=== PATIENT | female | born 1985 | race Caucasian/White ===

== ENCOUNTER 2017-09-19 09:46 | Inpatient (IN) ==
[2017-09-20] MEDS ORDERED: CALCIUM CARBONATE Chewable 500mg TABLET PO PRN ×2 (05:06→12:52)
[2017-09-20] MEDS ORDERED: OXYTOCIN DRIP 30 UNIT/500 ML ML IV PRN (05:06)
[2017-09-20] MEDS ORDERED: MAG-AL + SIM ORAL LIQUID 30ml PO PRN ×2 (05:06→12:52)
[2017-09-20] MEDS ORDERED: D5LR 1,000 ML IV PRN (05:06)
[2017-09-20] MEDS ORDERED: METHYLERGONOVINE 0.2 MG/ML INJECTION IM PRN (05:06)
[2017-09-20] MEDS ORDERED: LIDOCAINE 1% (10mg/ml) 2mL INJ PF SDV ID PRN (05:06)
[2017-09-20] MEDS ORDERED: ACETAMINOPHEN 500 MG TABLET PO PRN ×2 (05:06→12:52)
[2017-09-20] MEDS ORDERED: CARBOPROST 250 MCG/ML INJECTION IM PRN (05:06)
--- OUTSIDE RECORDS SUMMARY | 2017-09-20 05:08 | External Medical Summary | Continuity of Care Document ---
:1985 Author Organization [facility] Address [address] [place], [place] [address] Phone Care Team Providers Name Role Phone Teresa Mckeon MD Unavailable Unavailable Allergies, Adverse Reactions, Alerts Substance Reaction Severity Status No Known Drug Allergies Unknown Active Medications Medication Instructions Dosage Effective Dates Status Comments (start - stop) PrenaCare 90 mg-1 take 1 tablet by Not Available - Active mg-50 mg Tab oral route every day Problems Condition Effective Dates (start - stop) Clinical Status Maternal care for excess growth, - third trimester, unsp 36 weeks gestation of - Maternal care for excess growth, - third trimester, unsp Encounter for suprvsn of normal - , third trimester 34 weeks gestation of - Encounter for suprvsn of normal - , first trimester 13 weeks gestation of - Encounter for suprvsn of normal - , first trimester 9 weeks gestation of - Encounter for suprvsn of normal - , second trimester 18 weeks gestation of - Encounter for suprvsn of normal - , second trimester 21 weeks gestation of - Encounter for suprvsn of normal - , second trimester 25 weeks gestation of - Encounter for suprvsn of normal - , third trimester Encounter For Screening For - Streptococcus B 36 weeks gestation of - Encounter for suprvsn of normal - , third trimester 38 weeks gestation of - Encounter for suprvsn of normal - , third trimester 29 weeks gestation of - Encounter for suprvsn of normal - , third trimester 37 weeks gestation of - Encounter for suprvsn of normal - , third trimester 32 weeks gestation of - Encounter for screening of - mother 21 weeks gestation of - Active Procedures Procedure Date Ultrasnd preg uterus, flwup/repeat Results Test Name Date and Time Measure Units Reference Range Abnormal Flag Comments Unknown Advance Directives Directive Yes / No Effective Date File Name Unknown Encounters Encounter Practice Location Reason(s) Diagnoses Date Provider Care Team Description For Visit Members Chago Batista Encounter for Sep- [place] Referring In Womens suprvsn of normal 3-201 Javed. 700 Provider: Fred HERNNADEZ, , third 8 Medical Teresa [address] [email or web address] weeks Center Fast, 110 1522, gestation of Kj Leyva, [address], [address], [place], [address], [id number], [place], [facility] [id number] [place], [address]. tel:+[phone] , [place]. tel:[phone] tel: [phone] Chago [place] Encounter for Dec-2 [place] Referring In Womens suprvsn of normal 8-201 Javed. 700 Provider: Fred HERNANDEZ, , third 7 Medical Teresa PO Box [email or web address] weeks Center Fast, 110 1522, gestation of Kj Leyva, [address], [address], [place], [address], [id number], [place], [facility] [id number] [place], [address]. tel:+[phone] , [place]. tel:[phone] tel: [phone] Chago [place] Encounter for Dec-2 [place] Referring In Womens suprvsn of normal 0-201 Javed. 700 Provider: Fred HERNANDEZ, , third 7 Medical Teresa PO Box trimesterEncounte Center Fast, 110 1522, r For Kj Leyva, Screening For 120, [address] PO [place], Streptococcus B36 [place], [address], [id number], weeks gestation [place], [place], [place] [id number] [place], [address]. tel: , [place]. tel: tel:[phone] Chago [place] Maternal care for Dec-2 [place] Referring In Womens Ultrasound excess 0-201 Javed. 700 Provider: Health MARY, growth, third 7 Medical Teresa PO Box trimester, [email or web address] Center Fast, 110 1522, weeks gestation Kj Leyva, of [address], [address], [place], [address], [id number], [place], [place], [id number] [place], [address]. tel: , [place]. tel: tel:[phone] Chago [place] Maternal care for Dec-0 [place] Referring In Womens excess 5-201 Javed. 700 Provider: Fred HERNANDEZ, growth, third 7 Medical Teresa PO Box trimester, Center Fast, 110 1522, unspEncounter for Kj Leyva, suprvsn of normal 120, [address] PO [place], , third [place], [address], [id number], [email or web address] weeks [facility], [place] [id number] [place], [address]. tel: , [place]. tel: tel:[phone] Chago [place] Encounter for Nov-2 [place] Referring In Womens suprvsn of normal 1-201 Javed. 700 Provider: Fred HERNANDEZ, , third 7 Medical Teresa PO Box [email or web address] weeks Center Fast, 110 1522, gestation of Kj Leyva, [address], [address], [place], [address], [id number], [place], [place], [id number] [place], [address]. tel: , [place]. tel: tel:[phone] Chago [place] Encounter for Oct-3 [place] Referring In Womens suprvsn of normal 1-201 Javed. 700 Provider: Fred HERNANDEZ, , third 7 Medical Teresa PO Box [email or web address] weeks Center Fast, 110 1522, gestation of Kj Leyva, [address], [address], [place], [address], [id number], [place], [place], [id number] [place], [address]. tel: , [place]. tel: tel:[phone] [place] Encounter for Oct-0 [place] Referring In Womens suprvsn of normal 3-201 Javed. 700 Provider: Health MARY, , second 7 Medical Teresa PO Box [email or web address] weeks Center Fast, 110 1522, gestation of Kj Leyva, [address], [address], [place], [address], [id number], [place], [place], [id number] [place], [address]. tel: , [place]. tel: tel:[phone] [place] Encounter for Sep-0 [place] Referring In Womens suprvsn of normal 7-201 Javed. 700 Provider: Fred HERNANDEZ, , second 7 Medical Teresa PO Box [email or web address] weeks Center Fast, 110 1522, gestation of Kj Leyva, [address], [address], [place], [address], [id number], [place], [place], [id number] [place], [address]. tel: , [place]. tel: tel:[phone] [place] Encounter for Sep-0 [place] Referring In Womens Ultrasound 7-201 Javed. 700 Provider: Fred HERNANDEZ, screening of 7 Medical Teresa PO Box weeks Center Fast, 110 1522, gestation of Kj Leyva, 120, [address], [place], [address], [id number], [place], [place], [id number] [place], [address]. tel:+ , [place]. tel: tel: [phone] [place] Encounter for Aug-1 [place] Referring In Womens suprvsn of normal 5-201 Javed. 700 Provider: Fred HERNANDEZ, , second 7 Medical Teresa PO Box [email or web address] weeks Center Fast, 110 1522, gestation of Kj Leyva, 120, [address] [place], [address], [id number], [place], [place], [id number] [place], [address]. tel: , [place]. tel: tel: [phone] Chago [place] Encounter for Giorgi-1 [place] Referring In Womens suprvsn of normal 3-201 [place]. 700 Provider: Health MARY, , first 7 Medical Teresa PO Box [email or web address] weeks Center Fast, 110 1522, gestation of Kj Leyva, 120, [address] [place], [address], [id number], [place], [place], [id number] [place], [address]. tel: , [place]. tel: tel: [phone] Chago [place] Encounter for Adriel-1 [place] Referring In Womens suprvsn of normal 5-201 [place]. 700 Provider: Health MARY, , first 7 Medical Teresa Box trimester9 weeks Center Fast, 110 1522, gestation of Kj Leyva, 120, [address] [place], [address], [id number], [place], [place], [id number] [place], [address]. tel: , [place]. tel: tel: [phone] Chago [place] Giorgi-1 [place] Referring In Womens 0-201 [place]. 700 Provider: Health MARY, 5 [facility] [place] R, 1522, Kj Leyva, 120, Medical [place] [facility] , [place], [place] [address], [place] [id number] [place], tel: , [place]. [place], tel: [phone]. [id number] tel:[phone] Chago [place]ista Feb-1 [place] In Womens 0-201 Javed. 700 Health MARY, 5 [facility] Box Center 1522, Kj Leyva, 120, [place] [id number], [place], [place] [id number] tel: , [place]. tel: [phone] Chago [place]ista Mar-0 [place] In Womens 5-201 Javed. 700 [facility], 2 Medical PO Box Center 1522, , Kj Aburto, 120, [place], [place], [id number], [place], [place] [id number] tel: , [place]. tel: [phone] Chago Batista Aug- Fanny In Womens 3-200 Gisell. [facility], 9 700 PO Box [facility] [address], [address], [place]j [place], 120, [id number], [place], [place], tel: [phone] , [place]. tel: [phone] Family History Family Member Diagnosis Age At Onset Father Hypercholesterolemia Paternal Grandfather Hypercholesterolemia Brother Cardiovascular Disease Paternal Grandfather Cardiovascular Disease Immunizations Vaccine Date Status Comments Tdap completed Source: New Immunization Record Influenza, injectable, completed Source: New Immunization Record quadrivalent, preservative free, 3 yrs or older Tdap completed Source: New Immunization Record Influenza, injectable, completed Source: Other Provider quadrivalent, preservative free, 3 yrs or older Payers Payer name Insurance type Covered green party ID Authorization(s) BCBS Out Of [place] [id number] BCBS Out Of [place] [id number] BCBS Out Of [place] [id number] [employer] [id number] Social History Type Description Quantity Date Captured Unknown Vital Signs Date / Height Weight BMI Pulse Blood Temperature Respiratory Body Head BMI Time: Rate Pressure Rate Surface Circumference percentile Area Unknown Chief Complaint And Reason For Visit Unknown Chief Complaint And Reason For Visit Reason For Referral Reason For Referral Unknown Plan Of Care Date Type Action Status Appointment Pallavi Swain BOOKED Future Order: Radiology Order Ultrasound OB Follow-up ([id number]) Ordered Future Order: Radiology Order Complete OB Ultrasound > 14 Ordered Weeks ([id number]) Date Type Problem Goal Intervention Status Start Date Unknown. History Of Present Illness Encounter Date Complaint History Of Present Illness This patient has no known history of present illness Functional Status Encounter Date Functional Assessment Cognitive Assessment Unknown Medications Administered Medication Instructions Dosage Effective Dates (start - stop) Status Comments Drug Treatment Unknown Instructions Date Instruction Additional Information HIV and other routine tests risk factors identified by history anticipated course of care nutrition and weight gain counseling, special diet toxoplasmosis precautions (cats / raw meat) sexual activity exercise indications for ultrasound influenza vaccine environmental / work hazards travel use of any medications (including supplements, vitamins, herbs, OTC drugs) domestic violence seat belt use childbirth classes / hospital facilities hospital registration genetic testing risks Zika virus assessment & precautions
--- OUTSIDE RECORDS SUMMARY | 2017-09-20 05:08 | External Medical Summary | Continuity of Care Document ---
:1984 Author Organization [facility] Address [address] [place], [place] [id number] Phone Care Team Providers Name Role Phone [...] Effective Dates (start - stop) Clinical Status Encounter for suprvsn of normal - , second trimester 18 weeks gestation of - Encounter for suprvsn of normal - , first trimester 13 weeks gestation of - Encounter for suprvsn of normal - , first trimester 9 weeks gestation of - Active Procedures Procedure Date OB Visit No Charge Results Test Name Date and Time Measure Units Reference Range Abnormal Flag Comments Unknown Advance Directives Directive Yes / No Effective Date File Name Unknown Encounters Encounter Practice Location Reason(s) Diagnoses Date Provider Care Team Description For Visit Members [facility] [place] Encounter [place] Referring [facility] for suprvsn -2016 Javed. 700 Provider: MARY, DORITA Box of normal Medical Teresa Mckeon, 1522, , [address], [address] [place], [place], second Kj 120, [address] PO [id number], [place] [email or web address] [place], [address], tel:[phone] weeks Charlie LORENZO, 6790 gestation [id number], [place], [address]. of [place]. tel: tel:[phone] [facility] [place] Encounter [facility] for Javed. 700 Provider: DORITA HERNANDEZ of [facility], 1522, , Center , [address] [place], first Kj [address], [address] PO [id number], [place] [email or web address] Priscilla [place] 596, tel:+ weeks Charlie LORENZO, 6790 gestation [id number], [place], [address]. of [place]. tel: tel: [phone] [facility] [place] Encounter [facility] for Javed. 700 Provider: DORITA HERNANDEZ of [facility] Teresa [facility], 1522, , Center , [address] [place], first Kj 120, [address] PO , [place] trimester9 Priscilla [place] 596, tel:+ weeks Charlie LORENZO, 6790 gestation [id number], [place], [address]. of [place]. tel: tel: [phone] [facility] [place] [facility] -2014 Javed. 700 Provider: DORITA HERNANDEZ [facility] 1522, [place] Leyva [place], [place], Kj 120, 700 Medical [id number], [place] [address] tel: [place], Kj 120, 6790 [id number], [place], [place]. [id number]. tel: tel: [phone] [facility] [place]2014 Javed. 700 DORITA HERNANDEZ [facility] 1522, [place] Lamonte Leyva [place], Kj 120, [id number], [place], tel:[phone] [place], 6790 [id number], [place]. tel:[phone] [facility] [place] [facility] -2011 Javed. 700 DORITA HERNANDEZ [facility] 1522, [place] Lamonte Leyva [place], Kj 120, [id number], [place], tel:[phone] MAURA, 6790 [id number], [place]. tel:[phone] [facility] [place] [facility] -2008 Brenda. HERNANDEZ, [address] 3461, Medical [place], [place], Center , [id number], [place] Kj 120, tel:[phone] [place] [address] LORENZO, [id number], [place]. tel:[phone] Family History Family Member Diagnosis Age At Onset Father Hypercholesterolemia Paternal Grandfather Hypercholesterolemia Brother Cardiovascular Disease Paternal Grandfather Cardiovascular Disease Immunizations Vaccine Date Status Comments Tdap completed Source: New Immunization Record Influenza, injectable, completed Source: Other Provider quadrivalent, preservative free, 3 yrs or older Payers Payer name Insurance type Covered democrat ID Authorization(s) BCBS Out Of State [id number] [facility] [id number] Social History Type Description Quantity Date Captured Alcohol Use Details No Caffeine Use Details Unknown Tobacco Use Status Unknown Smoking Status Never smoker Vital Signs Date / Height Weight BMI Pulse Blood Temperature Respiratory Body Head BMI Time: Rate Pressure Rate Surface Circumference percentile Area 163.00 39.3 138/78 -2017 lbs 0 mm[Hg] 11:39 kg/m AM eter (2) 163.00 39.3 -2017 lbs 0 11:31 kg/m AM eter (2) Chief Complaint And Reason For Visit Unknown Chief Complaint And Reason For Visit Reason For Referral Reason For Referral Unknown Plan Of Care Date Type Action Status Appointment Pallavi Swain BOOKED Appointment Pallavi Swain BOOKED Date Type Problem Goal Intervention Status Start [...]
--- OUTSIDE RECORDS SUMMARY | 2017-09-20 05:08 | External Medical Summary | Continuity of Care Document ---
:1984 Author Organization [facility] Address [address] [place], [place] [address] Phone Care Team Providers Name Role Phone [...] gestation of - Active Procedures Procedure Date Unknown Results Test Name Date and Time Measure Units Reference Range Abnormal Flag Comments Unknown Advance Directives Directive Yes / No Effective Date File Name Unknown Encounters Encounter Practice Location Reason(s) Diagnoses Date Provider Care Team Description For Visit Members Chago Batista Encounter for Sep- [place] Referring In Womens suprvsn of normal 3-201 Javed. 700 Provider: Fred HERNANDEZ, , third 8 Medical Teresa PO Box [email or web address] weeks Center Fast, 110 1522, gestation of Kj Leyva, 120, [address] PO [place], [place], [address], [id number], [place], [facility] [id number] [place], [address]. tel:[phone] , [place]. tel:[phone] tel: [phone] Chago [place] Encounter for Dec-2 [place] Referring In Womens suprvsn of normal 8-201 Javed. 700 Provider: Fred HERNANDEZ, , third 7 Medical Teresa Box [email or web address] weeks Center Fast, 110 1522, gestation of Kj Leyva, 120, [address] PO [place], [place], [address], [id number], [place], [facility] [id number] [place], [address]. tel:[phone] , [place]. tel:[phone] tel: [phone] Chago [place] Encounter for Dec-2 [place] Referring In Womens suprvsn of normal 0-201 Javed. 700 Provider: Fred HERNANDEZ, , third 7 Medical Teresa Box trimesterEncounte Center Fast, 110 1522, r For Kj Leyva, Screening For 120, [address] PO [place], Streptococcus B36 [place], [address], [id number], weeks gestation [place], [place], [place] [id number] [place], [address]. tel: , [place]. tel: tel:[phone] [facility] [place] Maternal care for Dec-2 [place] Referring In Womens Ultrasound excess 0-201 Javed. 700 Provider: Fred HERNANDEZ, growth, third 7 Medical Teresa PO Box trimester, [email or web address] Center Fast, 110 1522, weeks gestation Kj Leyva, of 120, [address]A, [place], [address], [id number], [place], [place], [id number] [place], [address]. tel: , [place]. tel: tel:[phone] [facility] [place] Dec-1 [place] In Womens 9-201 Javed. 700 Health MARY, 7 Medical PO Box Center 1522, [place]j Leyva, 120, [place], [place], [id number], [place], [place] [id number] tel: , [place]. tel: [phone] Chago [place] Maternal care for Dec-0 [place] Referring In Womens excess 5-201 Javed. 700 Provider: Fred HERNANDEZ, growth, third 7 Medical Teresa PO Box trimester, Center Fast, 110 1522, unspEncounter for Kj Leyva, suprvsn of normal 120, Street PO [place], , third [place], [address], [id number], [email or web address] weeks [facility], [place] [id number] [place], [address]. tel: , [place]. tel: tel:[phone] Chago [place]ista Encounter for Nov-2 [place] Referring In Womens suprvsn of normal 1-201 Javed. 700 Provider: Fred HERNANDEZ, , third 7 Medical Teresa PO Box [email or web address] weeks Center Fast, 110 1522, gestation of Kj Leyva, 120, [address] PO [address]URA, [place], [address], [id number], [place], [place], [id number] [place], [address]. tel: , [place]. tel: tel:[phone] Chago [place] Encounter for Oct-3 [place] Referring In Womens suprvsn of normal 1-201 [place]. 700 Provider: Fred HERNANDEZ, , third 7 Medical Tereas KEVIN Box [email or web address] weeks Center Fast, 110 1522, gestation of Kj Leyva, 120, [address] PO [place] LORENZO, [address], [id number], [place], [place], [id number] [place], [address]. tel: , [place]. tel: tel:[phone] Chago [place] Encounter for Oct-0 [place] Referring In Womens suprvsn of normal 3-201 [place]. 700 Provider: Fred HERNANDEZ, , second 7 Medical Teresa KEVIN Box [email or web address] weeks Center Fast, 110 1522, gestation of Kj Leyva, 120, [address] PO [place] LORENZO, [address], [id number], [place], [place], [id number] [place], [address]. tel: , [place]. tel: tel:[phone] Chago [place] Encounter for Sep-0 [place] Referring In Womens suprvsn of normal 7-201 [place]. 700 Provider: Fred HERNANDEZ, , second 7 Medical Teresa DORITA Box [email or web address] weeks Center Fast, 110 1522, gestation of Kj Leyva, 120, [address] PO [place] LORENZO, [address], [id number], [place], [place], [id number] [place], [address]. tel: , [place]. tel: tel:[phone] Chago [place] Encounter for Sep-0 [place] Referring In Womens Ultrasound 7-201 [place]. 700 Provider: Fred HERNANDEZ, screening of 7 Medical Teresa PO Box [email or web address] weeks Center Fast, 110 1522, gestation of Kj Leyva, 120, [address] PO [place] LORENZO, [address], [id number], [place], [place], [place] [id number] [place], [address]. tel: , [place]. tel: tel:[phone] Chago [place]ista Encounter for Aug-1 [place] Referring In Womens suprvsn of normal 5-201 Javed. 700 Provider: Fred HERNANDEZ, , second 7 Medical Teresa PO Box weeks Center Fast, 110 1522, gestation of Kj Leyva, 120, [address] PO [place] LORENZO, [address], [id number], [place], [place], [id number] [place], [address]. tel: , [place]. tel: tel:[phone] Chago [place]ista Encounter for Giorgi-1 [place] Referring In Womens suprvsn of normal 3-201 Javed. 700 Provider: Fred HERNANDEZ, , first 7 Medical Teresa PO Box [email or web address] weeks Center Fast, 110 1522, gestation of Kj Leyva, 120, [address] Lester LORENZO, [address], [id number], [place], [place], [id number] [place], [address]. tel: , [place]. tel: tel:[phone] Chago [place]ista Encounter for Adriel-1 [place] Referring In Womens suprvsn of normal 5-201 Javed. 700 Provider: Fred HERNANDEZ, , first 7 Medical Teresa PO Box trimester9 weeks Center Fast, 110 1522, gestation of Kj Leyva, 120, [address] PO [address]URA, [place], [address], [id number], [place], [place], [id number] [place], [address]. tel: , [place]. tel: tel:[phone] Chago [place] Giorgi-1 [place] Referring In Womens 0-201 Javed. 700 Provider: Fred HERNANDEZ, 5 Medical [facility] Box Center [place] R, 1522, Kj Leyva, 120, Medical [facility] [facility] [id number], [place], [place] [address], [place] [id number] [place], tel: , [place]. [place], tel: [phone]. [id number] tel:[phone] Chago Batista Feb- [place] In Womens 0-201 Javed. 700 Health [place], 5 Medical PO Box Center 1522, , Kj Aburto, 120, [place], [place], [id number], [place], [place] [id number] tel:+ , [place]. tel: [phone] Chago [place] Mar- [place] In Womens 5-201 Javed. 700 [facility], 2 Medical PO Box Center 1522, , Kj Aburto, 120, [place], [place], [id number], [place], [place] [id number] tel: , [place]. tel: [phone] Chago [place] Aug- Fanny In Womens 3-200 Gisell. Health [place], 9 700 PO Box Medical [address], [address], Kj [place], 120, [id number], [place], [place], tel: [phone] , [place]. tel: [phone] Family History Family Member Diagnosis Age At [...] older Payers Payer name Insurance type Covered constitution party ID Authorization(s) BCBS Out Of State [id number] BCBS Out Of State [id number] BCBS Out Of [place] [id number] [facility] [id number] Social History Type Description Quantity Date Captured [...] Future Order: Radiology Order Ultrasound OB Follow-up ([id number]) Ordered Future Order: Radiology Order Complete OB Ultrasound > 14 Ordered Weeks ([id number]) Date Type Problem Goal Intervention Status Start [...]
--- OUTSIDE RECORDS SUMMARY | 2017-09-20 05:08 | External Medical Summary | Continuity of Care Document ---
:1984 Author Organization [facility] Address [address] [place], [place] [id number] Phone Care Team Providers Name Role Phone [...] Hospital for suprvsn -2016 Javed. 700 Provider: DORITA HERNANDEZ Box of normal Medical Teresa Mckeon, 1522, , Center , [address] [place], [place], first [address], [address] PO [id number], [place] [email or web address] Batista, [address], tel:[phone] weeks [place], [place], 6714 gestation [id number], [place], [address]. of [place]. tel:[phone] tel:[phone] Associates In Batista Encounter [facility] for -2016 Javed. 700 Provider: DORITA HERNANDEZ of [facility] Teresa [facility], 1522, , Center , [address] MAURA Aburto, first [address], [address] PO [id number], [place] trimester9 Lester, [address], tel:[phone] weeks [place], [place], 6790 gestation [id number], [place], [address]. of [place]. tel: tel:[phone] Associates In Batista [facility] -2014 Javed. 700 Provider: DORITA HERNANDEZ [facility] 1522, [place] Leyva [place], Kj 120, 700 Medical [id number], C[address]ia Bat[address] Dr tel:+ [place], Kj 120, 6790 [id number], [place], [place], [place]. [id number]. tel: tel: [phone] Associates In [place] [facility] -2014 Javed. 700 DORITA HERNANDEZ [facility] 1522, [place] Lamonte Leyva [place], Kj 120, [id number], Lester, tel:[phone] [place], 67 [id number], [place]. tel:[phone] Associates In [place] [facility] -2011 Javed. 700 DORITA HERNANDEZ [facility] 1522, [place] Lam[place] Leyva [place], Kj 120, [id number], Lester, tel:+[phone] [place], 67 [id number], [place]. tel:[phone] Associates In Lester [facility] -2009 Gisell. DORITA HERNANDEZ 700 1522, [facility] MAURA Aburto, Cinthia Leyav, [id number], Kj 120, tel:[phone] [address], [id number], . tel:[phone] Family History Family Member Diagnosis Age At Onset Father Hypercholesterolemia Paternal Grandfather Hypercholesterolemia Brother Cardiovascular Disease Paternal Grandfather Cardiovascular Disease Immunizations Vaccine Date Status Comments Tdap completed Source: New Immunization Record Influenza, injectable, completed Source: Other Provider quadrivalent, preservative free, 3 yrs or older Payers Payer name Insurance type Covered alliance party ID Authorization(s) BCBS Out Of State [id number] Aetna [id number] Social History Type Description Quantity Date Captured Alcohol Use Details No Caffeine Use Details Unknown Tobacco Use Status Unknown Smoking Status Never smoker Vital Signs Date / Height Weight BMI Pulse Blood Temperature Respiratory Body Head BMI Time: Rate Pressure Rate Surface Circumference percentile Area 158.10 38. lbs 2 9:12 kg/m AM eter (2) Chief Complaint And Reason For Visit Unknown Chief Complaint And Reason For Visit Reason For Referral Reason For Referral Unknown Plan Of Care Date Type Action Status Appointment Pallavi Swain BOOKED Date Type Problem [...]
--- OUTSIDE RECORDS SUMMARY | 2017-09-20 05:09 | External Medical Summary | Continuity of Care Document ---
:1984 Author Organization [facility] Address [address] [place], [place] [phone] Phone Care Team Providers Name Role Phone Teresa Mckeon MD Unavailable Unavailable Allergies, Adverse Reactions, Alerts Substance Reaction Severity Status No Known Drug Allergies Unknown Active Medications Medication Instructions Dosage Effective Dates Status Comments (start - stop) loratadine 10 mg take 1 tablet by 10 MG - Active tablet oral route every day PrenaCare 90 mg-1 take 1 tablet by [...] 21 weeks gestation of - Encounter for screening [...] Description For Visit Members Chago Batista Encounter [place] Referring In Womens for Javed. 700 Provider: Fred HERNANDEZ, of normal Medical [facility] [address], , Center Mike Leyva, [address] [place], [place], second Kj 120, [address] [id number], [email or web address] Keyshawn Batista [place] weeks [place], [address], tel:[phone] gestation [id number], [place], [address] [place], [address]. tel: tel:[phone] Chago Batista Encounter [place] Referring In Womens for Javed. 700 Provider: Fred HERNANDEZ, of [facility] [address], , Center Mike Leyva, [address] [place], [place], second [address], [address] [id number], [email or web address] Keyshawn Batista [place] weeks [place], [address], tel:+[phone] gestation [id number], [place], [address] [place], [address]. tel: tel:[phone] 8075186 Chago Batista Encounter [place] Referring In Womens Ultrasound Javed. 700 Provider: Fred HERNANDEZ, Medical [facility] [address], screening Center Mike Leyva, [address] [place], [place], of Kj 120, [address] [id number], weeks Keyshawn Batista [place] gestation [place], [address], tel:[phone] of [id number], [place], [address] [place], [address]. tel: tel:[phone] 2406247 Chago Batista Encounter [place] Referring In Womens for suprvs Javed. 700 Provider: Fred HERNANDEZ, of [place] Medical [facility] [address], , Center Mike Leyva, [address] [place], second [address]j 120, [address] [id number], [email or web address] Lester [facility] [place] weeks [place], [address], tel:+[phone] gestation [id number], [place], [address] [place], [address]. tel: tel:[phone] 8582372 Chago Batista Encounter [place] Referring In Womens for Javed. 700 Provider: Health MARY, [facility] [address], , Center Mike Leyva, 110 [place], [place], first Kj 120, [address] Pretty [id number], [email or web address] Lester [facility] [place] weeks [place], [address], tel:[phone] gestation [id number], [place], [address] [place], [address]. tel:+316 tel:[phone] Chago Walton [place] Referring In Womens for suprvsn -2016 Javed. 700 Provider: Health MARY, [facility] [address], , Center Mike Leyva, 110 [place], [place], first Kj 120, E Pretty [id number], [email or web address] Lester [facility] [place] weeks [place], [address], tel:[phone] gestation [id number], [place], [address] [place], [address]. tel:+316 tel:[phone] Chago Batista [place] Referring In Womens -2014 Javed. 700 Provider: Fred HERNANDEZ [facility] [address], [place] Austin Leyva, [place], Kj 120, 700 [id number], [facility] tel:[phone], Kj 120, [address] [place]. Lester, tel:[phone] [place], [id number]. tel:[phone] Chago Batista [place] In Womens -2014 Javed. 700 Health MARY, Medical [address], [place] Lam[place] Ley[place], Kj 120, [id number], [facility], tel:[phone], [address] [place]. tel:[phone] Chago Batista [place] In Womens -2011 Javed. 700 Health MARY, Medical [address], Center [place], Kj 120, [id number], [facility], tel:[phone], [address] [place]. tel:[phone] Chago Batista Fanny In Womens -2008 Gisell. Health MARY, [facility] [address] , [id number], Kj [address], [place] Batista, tel:[phone] [place], [id number], [place]. tel:[phone] Family History Family Member Diagnosis Age At Onset Father Hypercholesterolemia Paternal Grandfather Hypercholesterolemia Brother Cardiovascular Disease Paternal Grandfather Cardiovascular Disease Immunizations Vaccine Date Status Comments Tdap completed Source: New Immunization Record Influenza, injectable, completed Source: Other Provider quadrivalent, preservative free, 3 yrs or older Payers Payer name Insurance type Covered republican ID Authorization(s) BCBS Out Of State BL [id number] Aetna CI [id number] Social History Type Description Quantity Date Captured Alcohol Use Details No Caffeine Use Details Unknown Tobacco Use Status Unknown Smoking Status Never smoker Vital Signs Date / Height Weight BMI Pulse Blood Temperature Respiratory Body Head BMI Time: Rate Pressure Rate Surface Circumference percentile Area 176.10 42.4 132/68 -2017 lbs 5 mm[Hg] 2:34 kg/m PM eter (2) 176.10 42.4 -2017 lbs 5 1:38 kg/m PM eter (2) Chief Complaint And Reason For Visit Unknown Chief Complaint And Reason For Visit Reason For Referral Reason For Referral Unknown Plan Of Care Date Type Action Status Appointment Pallavi Swain BOOKED Future Order: Radiology Order Complete OB Ultrasound > 14 Ordered Weeks ([id number]) Date Type Problem Goal Intervention Status Start [...]
--- OUTSIDE RECORDS SUMMARY | 2017-09-20 05:09 | External Medical Summary | Continuity of Care Document ---
:1984 Author Organization [facility] Address [address] [place], [place] [phone] Phone Care Team Providers Name Role Phone [...] 32 weeks gestation of - Encounter for suprvsn of normal - , second trimester 25 weeks gestation of - Maternal care for [...] 29 weeks gestation of - Encounter for screening [...] Team Description For Visit Members Chago Batista Maternal care Dec-0 [place] Referring In Womens for excess 5-201 Javed. 700 Provider: Health [place], growth, 7 Medical Teresa [address], third Center Fast, [address] [place], [place], trimester, DrKj [id number], unspEncounter 120, Street PO [place] for suprvsn of Batista, [address], tel:+ normal Charlie [place]ENZO, [address] , [id number] [place], [address]. third , [place]. tel: [id number] tel:[phone] weeks [id number] gestation of Chago Batista Encounter for Nov-2 [place] Referring In Womens suprvsn of 1-201 Javed. 700 Provider: Health MARY, normal 7 Medical Teresa [address], , Center Fast, 110 [place], [place], third Kj Leyva [id number], 120, Street PO [place] weeks Batista, [address], tel:21 gestation of Charlie [place], [id number] [place], [address]. , [place]. tel: tel:[phone] Chago Batista Encounter for Oct-3 [place] Referring In Womens suprvsn of 1-201 Javed. 700 Provider: Health [place], normal 7 Medical Teresa [address], , Center Fast, [address] [place], [place], third Kj Leyva [id number], [email or web address] [address], Street PO [place] weeks Batista, [address], tel:+21 gestation of Charlie [place], [id number] [place], [address]. , [place]. tel: tel:[phone] Chago Batista Encounter for Oct-0 [place] Referring In Womens suprvsn of 3-201 [place]. 700 Provider: Health PA, normal 7 Medical Teresa [address], , Center Fast, [address] [place], [place], second Kj Leyva [id number], 120, Street PO [place] weeks Batista, [address], tel:21 gestation of Charlie [place]ENZO, [id number] [place], [address]. , [place]. tel: tel:[phone] Chago Batista Encounter for Sep-0 [place] Referring In Womens [facility] of [place]. 700 Provider: Health [place], normal 7 Medical Teresa [address], , Center Fast, [address] [place], [place], second Kj Leyva [id number], [email or web address] [address], [address] PO [place] weeks Batista, [address], tel: gestation of Charlie [place], [id number] [place], [address]. , [place]. tel: tel:[phone] Chago Batista Encounter for Sep-0 [place] Referring In Womens Ultrasound [place]. 700 Provider: Health PA, screening of 7 Medical Teresa [address], [email or web address] weeks Center Fast, [address] [place], [place], gestation of Kj Leyva , 120, Street PO [place] Batista, [address], tel: Charlie LORENZO, [id number] [place], [address]. , [place]. tel: tel:[phone] Chago Baitsta Encounter for Aug-1 [place] Referring In Womens [facility] of [place]. 700 Provider: Health PA, normal 7 Medical Teresa [address], , Center Fast, [address] [place], [place], second Kj Leyva [id number], [email or web address] [address], Street PO [place] weeks Batista, [address], tel:21 gestation of Charlie [place]ENZO, [id number] [place], [address]. , [place]. tel: tel:[phone] Chago Batista Encounter for Giorgi-1 [place] Referring In Womens [facility] of 3-201 [place]. 700 Provider: Health PA, normal 7 Medical Teresa [address], , Center Fast, [address] [place], first Kj Leyva [id number], [email or web address] [address], Street PO [place] weeks Batista, [address], tel:+21 gestation of Charlie LORENZO, [id number] [place], [address]. , [place]. tel: tel: [phone] Chago Batista Encounter for Adriel-1 [place] Referring In Womens suprvsn of 5-201 [place]. 700 Provider: Health PA, normal 7 Medical Teresa [address], , Center Fast, [address] [place], [place], first Kj Leyva [id number], trimester9 120, Street PO [place] weeks Batista, [address], tel: gestation of Charlie LORENZO, [id number] [place], [address]. , [place]. tel: tel: [phone] Chago Batista Giorgi-1 [place] Referring In Womens 0-201 [place]. 700 Provider: Health PA, 5 Medical Javed [address], Center Austin R, MAURA Aburto, , Kj Umair [id number], 120, Medical Lester [place] tel: [place], Kj 120, [address] [id number] Batista, , . [place], tel: [phone]. [id number] tel:[phone] Chago Batista Feb-1 [place] In Womens 0-201 [place]. 700 Health PA, 5 Medical [address], [place] MAURA Aburto, Dr Kj [id number], 120, [place] Lester, tel:+21 [place], [id number] , [place]. tel: [phone] Chago Batista Giorgi-0 [place] In Womens 5-201 [place]. 700 Health PA, 2 Medical [address], Center MAURA Aburto, Dr Kj [id number], 120, [place], tel:+21 [place], [id number] , [place]. tel: [phone] Chago Batista Dec-2 Fanny In Womens 3-200 [facility], 9 700 [address], [facility] [id number] Ste [place] 120, tel:[phone] [place] [address] [place], [id number] , . tel: [phone] Family History Family Member Diagnosis Age At Onset Father Hypercholesterolemia Paternal Grandfather Hypercholesterolemia Brother Cardiovascular Disease Paternal Grandfather Cardiovascular Disease Immunizations Vaccine Date Status Comments Influenza, injectable, completed Source: New Immunization Record quadrivalent, preservative free, 3 yrs or older Tdap completed Source: New Immunization Record Influenza, injectable, completed Source: Other Provider quadrivalent, preservative free, 3 yrs or older Payers Payer name Insurance type Covered democrat ID Authorization(s) BCBS Out Of State [id number] BCBS Out Of State [id number] Aetna CI [id number] Social History Type Description Quantity Date Captured Alcohol Use Details No Caffeine Use Details Unknown Tobacco Use Status Unknown Smoking Status Never smoker Vital Signs Date / Height Weight BMI Pulse Blood Temperature Respiratory Body Head BMI Time: Rate Pressure Rate Surface Circumference percentile Area 189.70 45.7 -2017 lbs 3 8:45 kg/m AM eter (2) 189.70 45.7 138/78 -2017 lbs 3 mm[Hg] 9:00 kg/m AM eter (2) Chief Complaint And Reason For Visit Unknown Chief Complaint And Reason For Visit Reason For Referral Reason For Referral Unknown Plan Of Care Date Type Action Status Appointment Pallavi Swain BOOKED Appointment Pallavi Swain BOOKED Future Order: Radiology Order Complete OB Ultrasound > 14 Ordered Weeks ([id number]) Date Type Problem Goal Intervention Status Start [...]
--- OUTSIDE RECORDS SUMMARY | 2017-09-20 05:09 | External Medical Summary | Continuity of Care Document ---
:1984 Author Organization [facility] In [facility] Address [address] [place], [place] [phone] Phone Care Team Providers Name Role Phone [...] 18 weeks gestation of - Encounter for screening of - mother 21 weeks gestation of - Active Procedures Procedure Date OB Visit No Charge Results Test Name Date and Time Measure Units Reference Range Abnormal Flag Comments Unknown Advance Directives Directive Yes / No Effective Date File Name Unknown Encounters Encounter Practice Location Reason(s) Diagnoses Date Provider Care Team Description For Visit Members Associates [facility] Encounter [place] Referring In [facility] for suprvsn -2016 Javed. 700 Provider: Health MARY, of [place] Medical Teresa [address], , Center Mike Leyva, [address] [place], [place], second Kj 120, [address] [id number], [email or web address] Keyshawn Batista [place] weeks [place], [address], tel: gestation [id number], [place], [address] [place], [address]. tel: tel:[phone] Chago Batista Encounter [place] Referring In Womens Ultrasound Javed. 700 Provider: Health PA, Medical Teresa [address], screening Center Mike Leyva, 110 [place], [place], of [email or web address] Kj 120, [address] Pretty , weeks Keyshawn Batista [place] gestation [place], [address], tel: of [id number], [place], [address] [place], [address]. tel: tel:[phone] 3480847 Chago Batista Encounter [place] Referring In Womens for Javed. 700 Provider: Health [place], of [place] Medical [facility] [address], , Center Mike Leyva, [address] [place], [place], second Kj 120, [address] [id number], [email or web address] Keyshawn Batista [place] weeks [place], [address], tel: gestation [id number], [place], [address] [place], [address]. tel: tel:[phone] 8588607 Chago Batista Encounter [place] Referring In Womens for supr Javed. 700 Provider: Health PA, of normal [facility] [address], , Center Mike Leyva, [address] [place], [place], first Kj 120, [address]inder [id number], [email or web address] Keyshawn Batista [place] weeks [place], [address], tel: gestation [id number], [place], [address] [place], [address]. tel: tel:[phone] Chago Batista Encounter [place] Referring In Womens for suprvs Javed. 700 Provider: Health PA, of normal Medical Teresa [address], , Center Mike Leyva, [address] [place], [place], first Kj 120, [address]hwinder [id number], [email or web address] Keyshawn Batista [place] weeks [place], [address], tel:[phone] gestation [id number], [place], [address] [place], [address]. tel:316 tel:[phone] Chago Batista [place] Referring In Women [place]. 700 Provider: [facility], [place] Javed [address], Center [place] Leyva, [place], Kj 120, 700 [id number], [facility] [place] tel:[phone], Kj 120, [address] [place]. Lester, tel:+[phone] [place], [id number] [id number]. tel:[phone] Chago Batista [place] In Women [place]. 700 Health MD, Medical [address], Center , [place], Kj 120, [id number], [facility], tel:+[phone], [address] [place]. tel:[phone] Chago Batista [place] In Women [place]. 700 [facility], Medical [address], [place] , [place], Kj 120, [id number], [facility], tel:[phone], [address] [place]. tel:[phone] Chago Batista Fanny In Women [place]. [facility], 700 [address], [facility] [place], [place] , [id number], Kj 120, [place] Lester, tel:[phone] [place], [id number], [place]. tel:[phone] Family History Family Member Diagnosis Age At Onset Father Hypercholesterolemia Paternal Grandfather Hypercholesterolemia Brother Cardiovascular Disease Paternal Grandfather Cardiovascular Disease Immunizations Vaccine Date Status Comments Tdap completed Source: New Immunization Record Influenza, injectable, completed Source: Other Provider quadrivalent, preservative free, 3 yrs or older Payers Payer name Insurance type Covered democrat ID Authorization(s) BCBS Out Of State [id number] Aetna CI [id number] Social History Type Description Quantity Date Captured Alcohol Use Details No Caffeine Use Details Unknown Tobacco Use Status Unknown Smoking Status Never smoker Vital Signs Date / Height Weight BMI Pulse Blood Temperature Respiratory Body Head BMI Time: Rate Pressure Rate Surface Circumference percentile Area 172.40 41.5 128/78 -2017 lbs 6 mm[Hg] 9:55 kg/m AM eter (2) 172.40 41.5 -2017 lbs 6 9:20 kg/m AM eter (2) Chief Complaint And Reason For Visit Unknown Chief Complaint And Reason For Visit Reason For Referral Reason For Referral Unknown Plan Of Care Date Type Action Status Appointment Pallavi Swain BOOKED Future Order: Radiology Order Complete OB Ultrasound > 14 Ordered Weeks ([id number]) Date Type Problem Goal Intervention Status Start [...]
--- OUTSIDE RECORDS SUMMARY | 2017-09-20 05:09 | External Medical Summary | Continuity of Care Document ---
:1984 Author Organization [facility] In [facility] Address [address] [place], [place] [phone] Phone Care Team Providers Name Role Phone [...] (start - stop) Clinical Status Encounter for screening of - mother 21 weeks gestation of - Encounter for suprvsn of normal - , first trimester 13 weeks gestation of - Encounter for suprvsn of normal - , first trimester 9 weeks gestation of - Encounter for suprvsn of normal - , second trimester 18 weeks gestation of - Encounter for suprvsn of normal - , second trimester 21 weeks gestation of - Active Procedures Procedure Date Ultrasound exam of preg uterus, complete Results Test Name Date and Time Measure Units Reference Range Abnormal Flag Comments Unknown Advance Directives Directive Yes / No Effective Date File Name Unknown Encounters Encounter Practice Location Reason(s) Diagnoses Date Provider Care Team Description For Visit Members [facility] Encounter [place] Referring In [facility] for suprvsn -2016 Javed. 700 Provider: Fred HERNANDEZ, of normal Medical Teresa [address], , Center Mike Leyva, 110 [place], [place], second Kj 120, E Pretty [id number], [email or web address] Keyshawn Batista [place] weeks [place], [address], tel: gestation [id number], [place], [address] [place], [address]. tel: tel:[phone] Chago Batista Encounter [place] Referring In Womens Ultrasound Javed. 700 Provider: Health PA, Medical [facility] [address], screening Center Mike Leyva, 110 [place], [place], of [email or web address] Kj 120, [address] Pretty [id number], weeks Keyshawn Batista [place] gestation [place], [address], tel: of [id number], [place], [address] [place], [address]. tel: tel:[phone] Chago Batista Encounter [place] Referring In Womens for Javed. 700 Provider: Health PA, of [facility] [address], , Center Mike Leyva, 110 [place], [place], second Kj 120, E Sukhwinder [id number], [email or web address] Keyshawn Batista [place] weeks [place], [address], tel: gestation [id number], [place], [address] [place], [address]. tel: tel:[phone] 1150038 Chago Batista Encounter [place] Referring In Womens for Javed. 700 Provider: Health PA, of normal [facility] [address], , Center Mike Leyva, [address] [place], [place], first Kj 120, E Sukhwinder [id number], [email or web address] Keyshawn Batista [place] weeks [place], [address], tel:21 gestation [id number], [place], [address] [place], [address]. tel: tel:[phone] [phone] Chago Batista Encounter [place] Referring In Womens for suprvs Javed. 700 Provider: Health PA, of normal [facility] [address], , Center Mike Leyva, 110 [place], first Kj 120, E Sukhwinder [id number], [id number] Batista, Street PO [place] weeks [place], [address], tel:[phone] gestation [id number], [place], [address] [place], [address]. tel:316 tel:[phone] 3936054 Chago Batista [place] Referring In Women [place]. 700 Provider: Health PA, [employer] Javed [address], Center [place] Leyva, [place], Kj 120, 700 [id number], [facility] [place] tel:[phone], Kj 120, [address] [place]. Lester, tel:+[phone] [place], 8[id number]. tel:[phone] Chago Batista [place] In Women [place]. 700 Health PA, Medical [address], Center , [place], Kj 120, [id number], [facility], tel:+[phone], [address] [place]. tel:[phone] Chago Batista [place] In Women [place]. 700 Health [place], Medical [address], Center , [place], Kj 120, [id number], [facility], tel:[phone], [address] [place]. tel:[phone] Chago Batista Fanny In Women [place]. Health [place], 700 [address], [facility] [place], [place] , [id number], Kj 120, [place] Lester, tel:+[phone] [place], [id number], [place]. tel:[phone] Family History Family Member Diagnosis Age At Onset Father Hypercholesterolemia Paternal Grandfather Hypercholesterolemia Brother Cardiovascular Disease Paternal Grandfather Cardiovascular Disease Immunizations Vaccine Date Status Comments Tdap completed Source: New Immunization Record Influenza, injectable, completed Source: Other Provider quadrivalent, preservative free, 3 yrs or older Payers Payer name Insurance type Covered alliance party ID Authorization(s) BCBS Out Of State [id number] Aetna [id number] Social History Type Description Quantity Date Captured [...] Complete OB Ultrasound > 14 Ordered Weeks ([id number]) Date Type Problem Goal Intervention Status Start [...]
--- OUTSIDE RECORDS SUMMARY | 2017-09-20 05:09 | External Medical Summary | Continuity of Care Document ---
:1984 Author Organization [facility] Address [address] [place], [place] [id number] Phone Care Team Providers Name Role Phone [...] gestation of - Active Procedures Procedure Date Immuniz admnin, 1 vac, sngl/combo 19 Yrs + Flu Vaccine - Quadrivalent OB Visit No Charge Hemoglobin count, colorimetric Hematocrit blood count Glucose test Venpnctr fngr/heel/ear stick routne Results Test Name Date and Time Measure Units Reference Range Abnormal Flag Comments Panel Description: Glucose [Mass/volume] in Serum or Plasma --1 hour post 50 g glucose PO GLUCOSE, 118 mg/dL <140 N Test performed at [employer] GESTATIONAL SCREEN 14:45:00 [employer] [id number] (50G)-[address] [place] [address]Womriyat: MARISOL MACHUCA DO,MPH Panel Description: HEMOGLOBIN + HEMATOCRIT HEMOGLOBIN 14:45:00 11.5 g/dL 11.7-15.5 L HEMATOCRIT 14:45:00 32.7 % 35.0-45.0 L REPORT COMMENT:FASTING :NOTest performed at [facility] [id number] [place] [address]Xzlyrgrv: MARISOL MACHUCA DO,MPH Advance Directives Directive Yes / No Effective Date File Name Unknown Encounters Encounter Practice Location Reason(s) Diagnoses Date Provider Care Team Description For Visit Members Chago Batista Encounter [place] Referring In Womens for [facility] Javed. 700 Provider: Health PA, of [facility] [address], , Center Mike Leyva, 110 [place], [place], third Kj 120, Héctor Pretty [id number], [email or web address] [employer] [facility] weeks [place], [address], tel:[phone] gestation [id number], [place], [address] [place], [address]. tel: tel:[phone] Chago Batista Encounter [place] Referring In Womens for [facility] Javed. 700 Provider: Health PA, of [facility] [address], , Center Mike Leyva, [address] [place], [place], third Kj 120, E Sukhwinder [id number], [email or web address] Keyshawn Batista PO [place] weeks [place], [address], tel:21 gestation [id number], [place], [address] [place], [address]. tel: tel:[phone] Chago Batista Encounter [place] Referring In Womens for suprvs -2016 Javed. 700 Provider: Health PA, of [facility] [address], , Center Mike Leyva, 110 [place], [place], second Kj 120, E Sukhwinder [id number], [email or web address] Keyshawn Batista [place] weeks [place], [address], tel: gestation [id number], [place], [address] [place], [address]. tel: tel:[phone] Chago Batitsa Encounter [place] Referring In Womens for vs Javed. 700 Provider: Health PA, of [facility] [address], , Center Mike Leyva, 110 [place], [place], second Kj 120, E Sukhwinder [id number], [email or web address] Keyshawn Batista [place] weeks [place], [address], tel: gestation [id number], [place], [address] [place], [address]. tel: tel:[phone] Chago Batista Encounter [place] Referring In Womens Ultrasound Javed. 700 Provider: Health MARY, Medical [facility] [address], screening Center Mike Leyva, MAURA Torres, of Kj 120, E Sukhwinder [id number], weeks Keyshawn Batista [place] gestation [place], [address], tel: of [id number], [place], [address] [place], [address]. tel: tel:[phone] Chago Batista Encounter [place] Referring In Womens for vs -2016 Javed. 700 Provider: Health PA, of [facility] [address], , Center Mike Leyva, MAURA Torres, second Kj 120, E Sukhwinder [id number], [email or web address] Keyshawn Batista [place] weeks [place], [address], tel:21 gestation [id number], [place], [address] [place], [address]. tel: tel:[phone] Chago Batista Encounter [place] Referring In Womens for Javed. 700 Provider: Fred HERNANDEZ, of [facility] Teresa [address], , Center Mike Leyva, [address] [place], [place], first Kj 120, E Pretty [id number], [email or web address] Lester [facility] [place] weeks [place], [address], tel:[phone] gestation [id number], [place], [address] [place], [address]. tel: tel:[phone] Chago Batista Encounter [place] Referring In Womens for suprvs -2016 Javed. 700 Provider: Fred HERNANDEZ, of [facility] [address], , Center Mike Leyva, 110 [place], [place], first Kj 120, E Pretty [id number], [id number] Keyshawn [place] weeks [place], [address], tel:+[phone] gestation [id number], [place], [address] [place], [address]. tel: tel:[phone] Chago Batista [place] Referring In Womens -2014 Javed. 700 Provider: Cm Randall [address], [place] Leyva [place], Kj 120, 700 [id number], [facility] [place] tel:+[phone], Kj 120, [address] [place]. Lester, tel:+[phone] [place], [id number]. tel:[phone] Chago Batista [place] In Womens -2014 Javed. 700 Health MARY, Medical [address], Center Lamonte Leyva [place], Kj 120, [id number], [facility], tel:[phone], [address] [place]. tel:[phone] Chago Batista [place] In Womens -2011 Javed. 700 Fred HERNANDEZ, Medical [address], Center Lamonte Leyva [place], Kj 120, [id number], [facility], tel:[phone] [id number], [address] [place]. tel:[phone] Associates [facility] Fanny In Womens -2008 [place]. [facility], 700 [address], [place], [place], Center , [id number], Kj 120, [place], tel:[phone] [place], [id number], [place]. tel:[phone] Family History Family Member Diagnosis Age At [...] democrat ID Authorization(s) BCBS Out Of State [id number] BCBS Out Of State [id number] [facility] [id number] Social History Type Description Quantity Date Captured Alcohol Use Details No Caffeine Use Details Unknown Tobacco Use Status Unknown Smoking Status Never smoker Vital Signs Date / Height Weight BMI Pulse Blood Temperature Respiratory Body Head BMI Time: Rate Pressure Rate Surface Circumference percentile Area 184.40 44.4 138/78 -2017 lbs 6 mm[Hg] 2:08 kg/m PM eter (2) 184.40 44.4 -2017 lbs 6 1:38 kg/m PM eter (2) Chief Complaint And Reason For Visit Unknown Chief Complaint And Reason For Visit Reason For Referral Reason For Referral Unknown Plan Of Care Date Type Action Status Appointment Pallavi Swain BOOKED Future Order: Radiology Order Complete OB Ultrasound > 14 Ordered Weeks (13705) Date Type Problem Goal Intervention Status Start [...]
--- OUTSIDE RECORDS SUMMARY | 2017-09-20 05:09 | External Medical Summary | Continuity of Care Document ---
:1984 Author Organization [facility] Allergies Active Description Code Type Severity Reaction Onset Reported/ Identified Relationship Clinical to Patient Status Yes No Known 37270 3 N/A N/A Drug 0 Allergies Medications There is no data. Problems Date Dx Coded Attending Type Code Diagnosis Diagnosed By 05/13/2017 Javed Avila Z36 Encounter for screening of mother 05/13/2017 Javed Avila Z3A.21 21 weeks gestation of 07/06/2017 W Z34.83 Encounter for suprvsn of normal , third trimester 07/06/2017 W Z3A.29 29 weeks gestation of 08/25/2017 Javed Avila O36.63x0 Maternal care for excess growth, third trimester, unsp 08/25/2017 Javed Avila Z3A.36 36 weeks gestation of Procedures Code Description [place] [address] Ultrasnd exam 05/13/2017 of preg uterus, compl 34794 OB Visit No 07/06/2017 Charge 05781 Immuniz 07/06/2017 admnin, 1 vac, sngl/combo 20156 Flu Vaccine - 07/06/2017 Quadrivalent 40158 Ultrasnd preg 08/25/2017 uterus, flwup/repeat Results There is no data. Encounters ACCT No. Visit Discharge Status Pt. Type Provider Facility Loc./Unit Complaint Date/Time [id number] 09/16/2017 09/16/2017 [facility] Outpatient [place], 08:32:00 23:59:59 Javed Maza [id number] 09/08/2017 09/08/2017 [facility] Outpatient [place], 13:20:00 23:59:59 Javed Maza [id number] 09/02/2017 09/02/2017 [facility] Outpatient [place], 15:00:00 23:59:59 Javed Maza [id number] 08/25/2017 08/25/2017 [facility] Outpatient [place], 10:45:00 23:59:59 Javed Maza [id number] 08/25/2017 08/25/2017 [facility] Outpatient [place], 10:15:00 23:59:59 Javed Maza [id number] 08/24/2017 08/24/2017 [facility] Outpatient [place], 16:56:00 23:59:59 Javed Maza [id number] 08/10/2017 08/10/2017 [facility] Outpatient [place], 15:00:00 23:59:59 Javed Maza [id number] 07/27/2017 07/27/2017 [facility] Outpatient [place], 08:40:00 23:59:59 Javed Maza [id number] 06/08/2017 06/08/2017 [facility] Outpatient [place], 13:45:00 23:59:59 Javed Maza [id number] 05/13/2017 05/13/2017 [facility] Outpatient [place], 09:15:00 23:59:59 Javed Maza [id number] 05/13/2017 05/13/2017 [facility] Outpatient [place], 08:45:00 23:59:59 Javed Maza [id number] 04/20/2017 04/20/2017 [facility] Outpatient [place], 11:30:00 23:59:59 Javed Maza [id number] 03/18/2017 03/18/2017 [facility] Outpatient [place], 09:15:00 23:59:59 Javed Maza [id number] 02/18/2017 02/18/2017 [facility] Outpatient [place], 15:15:00 23:59:59 Javed Maza [id number] 06/04/2015 06/04/2015 [facility] Outpatient [place], 14:53:00 23:59:59 Javed Maza [id number] 05/30/2015 05/30/2015 [facility] Outpatient [place], 14:00:00 23:59:59 Javed Maza [id number] 07/06/2017 Document 13:45:00 Registration
--- OUTSIDE RECORDS SUMMARY | 2017-09-20 05:09 | External Medical Summary | Continuity of Care Document ---
:1984 Author Organization [facility] Address [address] [place], [place] [id number] Phone Care Team Providers Name Role Phone [...] third trimester 34 weeks gestation of - Maternal care for excess growth, - third trimester, unsp 36 weeks gestation of - Encounter for [...] For Visit Members Chago Batista Encounter for Dec-2 [place] Referring In Womens suprvsn of normal 0-201 Javed. 700 Provider: Fred HERNANDEZ, , third 7 Medical Teresa DORITA Box trimesterEncounte Center Fast, [address]22, r For Kj Leyva, Screening For 120, Street PO [place], Streptococcus B36 [place], [address], [id number], weeks gestation [facility] [place] [id number] [place], [address]. tel:[phone] , [place]. tel:[phone] tel: [phone] Chago Batista Maternal care for Dec-2 [place] Referring In Womens Ultrasound excess 0-201 Javed. 700 Provider: Fred HERNANDEZ growth, third 7 Medical Teresa DORITA Box trimester, [email or web address] Center Fast, 110 1522, weeks gestation Kj Leyva, of [address], [address] PO [place], [place], [address], [id number], [facility], [id number] [place], [address]. tel:+[phone] , [place]. tel:[phone] tel: [phone] Chago Batista Maternal care for Dec-0 [place] Referring In Womens excess 5-201 Javed. 700 Provider: Fred HERNANDEZ, growth, third 7 Medical Teresa KEVIN Box trimester, Center Fast, 110 1522, unspEncounter for Kj Leyva, suprvsn of normal 120, Street PO [place], , third [place], [address], [id number], [email or web address] [facility] [place] [id number] [place], [address]. tel: , [place]. tel: tel:[phone] Chago Batista Encounter for Nov-2 [place] Referring In Womens suprvsn of normal 1-201 Javed. 700 Provider: Health MARY, , third 7 Medical Teresa PO [address] [email or web address] weeks Center Fast, 110 1522, gestation of Kj Leyva, 120, Street PO Lester LORENZO, [address], [id number], [place], [place], [id number] [place], [address]. tel: , [place]. tel: tel:[phone] Chago Batista Encounter for Oct-3 [place] Referring In Womens suprvsn of normal 1-201 [place]. 700 Provider: Health MARY, , third 7 Medical Teresa PO [address] [email or web address] weeks Center Fast, 110 1522, gestation of Kj Leyva, 120, Street PO Lester LORENZO, [address], [id number], [place], [facility] [id number] [place], [address]. tel: , [place]. tel: tel:[phone] Chago Batista Encounter for Oct-0 [place] Referring In Womens suprvsn of normal 3-201 [place]. 700 Provider: Fred HERNANDEZ, , second 7 Medical Teresa [address] [email or web address] weeks Center Fast, 110 1522, gestation of Kj Leyva, 120, Street PO Lester LORENZO, [address], [id number], [place], [place], [id number] [place], [address]. tel: , [place]. tel: tel:[phone] Chago Batista Encounter for Sep-0 [place] Referring In Womens suprvsn of normal 7-201 Javed. 700 Provider: Health MARY, , second 7 Medical Teresa PO [address] [email or web address] weeks Center Fast, 110 1522, gestation of Kj Leyva, 120, [address] PO Lester LORENZO, [address], [id number], [place], [place], [id number] [place], [address]. tel: , [place]. tel: tel:[phone] Chago Batista Encounter for Sep-0 [place] Referring In Womens Ultrasound 7-201 Javed. 700 Provider: Fred HERNANDEZ, screening of 7 Medical Teresa [address] [email or web address] weeks Center Fast, 110 1522, gestation of Kj Leyva, 120, Street PO MAURA, Lester, [address], [id number], [place], [place], [id number] [place], [address]. tel: , [place]. tel: tel:[phone] Chago Batista Encounter for Aug-1 [place] Referring In Womens suprvsn of normal 5-201 Javed. 700 Provider: Fred HERNANDEZ, , second 7 Medical Teresa [address] [email or web address] weeks Center Fast, 110 1522, gestation of Kj Leyva, 120, [address] PO Lester LORENZO, [address], [id number], [place], [facility] [id number] [place], [address]. tel: , [place]. tel: tel:[phone] Chago Batista Encounter for Giorgi-1 [place] Referring In Womens suprvsn of normal 3-201 Javed. 700 Provider: Fred HERNANDEZ, , first 7 Medical Teresa [address] [email or web address] weeks Center Fast, 110 1522, gestation of Kj Leyva, 120, [address] PO Lester LORENZO, [address], [id number], [place], [place], [id number] [place], [address]. tel: , [place]. tel: tel:[phone] Chago Batista Encounter for Adriel-1 [place] Referring In Womens suprvsn of normal 5-201 Javed. 700 Provider: Fred HERNANDEZ, , first 7 Medical Teresa PO Box trimester9 weeks Center Fast, 110 1522, gestation of Kj Leyva, 120, Street PO Lester LORENZO, [address], [id number], [place], [place], [id number] [place], [address]. tel: , [place]. tel: tel: [phone] Associates [facility] Mar- [place] Referring In Womens 0-201 [place]. 700 Provider: Health PA, 5 Medical [place] PO Box Center [place] Maza, Vishal, , Kj Umair Aburto, 120, Medical [place], [facility] [id number], [place], [facility] 120, [id number] [place], tel: , [place]. [place], tel: [phone]. [id number] tel:[phone] Chago Batista Oct- [place] In Womens 0-201 [place]. 700 Health PA, 5 Medical PO Box Center [address], , Kj Aburto, 120, [place], [place], [id number], [place], [place] [id number] tel: , [place]. tel: [phone] Chago Batista Mar-0 [place] In Womens 5-201 [place]. 700 Health PA, 2 Medical PO Box Center 1522, , Kj Aburto, [facility], [place], [place], [id number], [place], [place] [id number] tel: , [place]. tel: [phone] Chago Batista Aug-2 Fanny In Womens 3-200 Gisell. Health PA, 9 [facility] [address] [place] [address], Center Dr Lamonte, [facility] MAURA, 120, [id number], [place], [place], tel: [phone] , [place]. tel: [phone] Family History Family Member Diagnosis Age At [...] party ID Authorization(s) BCBS Out Of State [id number] BCBS Out Of State [id number] BCBS Out Of State [id number] [employer] CI [id number] Social History Type Description Quantity Date Captured Alcohol Use Details No Caffeine Use Details Unknown Tobacco Use Status Unknown Smoking Status Never smoker Vital Signs Date / Height Weight BMI Pulse Blood Temperature Respiratory Body Head BMI Time: Rate Pressure Rate Surface Circumference percentile Area 189. 45.5 136/76 -2017 lbs 6 mm[Hg] 3:35 kg/m PM eter (2) 189. 45. lbs 6 3:09 kg/m PM eter (2) Chief Complaint And Reason For Visit Unknown Chief Complaint And Reason For Visit Reason For Referral Reason For Referral Unknown Plan Of Care Date Type Action Status Appointment Pallavi Swain BOOKED Future Order: Radiology Order Ultrasound OB Follow-up ([id number]) Ordered Future Order: Radiology Order Complete OB Ultrasound > 14 Ordered Weeks ([id number]) Date Type Problem Goal Intervention Status Start [...]
--- OUTSIDE RECORDS SUMMARY | 2017-09-20 05:09 | External Medical Summary | Continuity of Care Document ---
:1984 Author Organization [facility] Address [address] [place], [place] [phone] Phone Care Team Providers Name Role Phone [...] Streptococcus B 36 weeks gestation of - Maternal care [...] admnin, 1 vac, sngl/combo 19 Yrs + TDAP VACCINE >7 IM OB Visit No Charge Cult, pathgnc orgnsm, screen Results Test Name Date and Time Measure Units Reference Range Abnormal Flag Comments Panel Description: STREPTOCOCCUS, GROUP B CULTURE STREPTOCOCCUS, GROUP SEE NOTE STREPTOCOCCUS, GROUP B CULTURE B CULTURE 10:58:00 MICRO NUMBER: [id number] TEST STATUS: FINAL SPECIMEN SOURCE: VAGINAL/ANORECTAL SPECIMEN QUALITY: ADEQUATE RESULT: No group B Streptococcus isolatedREPORT COMMENT:FASTING:UNKNOWNTest performed at [facility] [id number] [place] [address]Deixhnkf: MARISOL MACHUCA DO,MPH Advance Directives Directive Yes / No Effective Date File Name Unknown Encounters Encounter Practice Location Reason(s) Diagnoses Date Provider Care Team Description For Visit Members Chago aBtista Encounter for Sep- [place] Referring In Womens suprvsn of normal 3-201 [place]. 700 Provider: Fred HERNANDEZ, , third 8 Medical Teresa [address] [email or web address] weeks Center Fast, 110 1522, gestation of Kj Leyva, 120, [address] PO Lester LORENZO, [address], [id number], [place], [facility] [id number] [place], [address]. tel:-[phone] , [place]. tel:-[phone] tel:[phone] Chago Batista Encounter for Aug- [place] Referring In Womens suprvsn of normal 8-201 Javed. 700 Provider: Health PA, , third 7 Medical Teresa [address] [email or web address] weeks Center Fast, 110 1522, gestation of Kj Leyva, 120, Street PO MAURA, [place], [address], [id number], [place], [facility] [id number] [place], [address]. tel:+316 , [place]. tel: tel:[phone] Chago Batista Encounter for Dec-2 [place] Referring In Womens suprvsn of normal 0-201 Javed. 700 Provider: Health PA, , third 7 Medical Teresa PO Box trimesterEncounte Center Fast, 110 1522, r For Kj Leyva, Screening For 120, Street PO [place], Streptococcus B36 [place], [address], [id number], weeks gestation [facility], [place] [id number] [place], [address]. tel:+ , [place]. tel: tel:[phone] Chago Batista Maternal care for Dec-2 [place] Referring In Womens Ultrasound excess 0-201 Javed. 700 Provider: Health MARY, growth, third 7 Medical Teresa PO Box trimester, [email or web address] Center Fast, 110 1522, weeks gestation Kj Leyva, of 120, [address] PO MAURA, [place], [address], [id number], [place], [facility] [id number] [place], [address]. tel:+ , [place]. tel: tel:[phone] Chago Batista Maternal care for Dec-0 [place] Referring In Womens excess 5-201 Javed. 700 Provider: Health MARY, growth, third 7 Medical Teresa PO Box trimester, Center Fast, 110 1522, unspEncounter for Kj Leyva, suprvsn of normal 120, Street PO [place], , third [place], [address], [id number], [email or web address] weeks [facility], gestation [place] [id number] [place], [address]. tel: , [place]. tel: tel:[phone] Chago Batista Encounter for Nov-2 [place] Referring In Womens suprvsn of normal 1-201 Javed. 700 Provider: Health PA, , third 7 Medical Teresa PO [address] [email or web address] weeks Center Fast, 110 1522, gestation of Kj Leyva, 120, [address] PO Lester LORENZO, [address], [id number], [place], [place], [place] [id number] [place], [address]. tel:+ , [place]. tel: tel: [phone] Chago Batista Encounter for Oct-3 [place] Referring In Womens suprvsn of normal 1-201 Javed. 700 Provider: Health MARY, , third 7 Medical Teresa PO Box [email or web address] weeks Center Fast, 110 1522, gestation of Kj Leyva, 120, [address] PO Lester LORENZO, [address], [id number], [place], [place] [id number] [place], [address]. tel:+ , [place]. tel: tel:[phone] Chago Batista Encounter for Oct-0 [place] Referring In Womens suprvsn of normal 3-201 Javed. 700 Provider: Health MARY, , second 7 Medical Teresa PO [address] [email or web address] weeks Center Fast, 110 1522, gestation of jK Leyva, 120, [address] PO Lester LORENZO, [address], [id number], [place], [place], [place] [id number] [place], [address]. tel:+ , [place]. tel: tel:[phone] Chago Batista Encounter for Sep-0 [place] Referring In Womens suprvsn of normal 7-201 Javed. 700 Provider: Fred HERNANDEZ, , second 7 Medical Teresa PO Box [email or web address] weeks Center Fast, 110 1522, gestation of Kj Leyva, 120, [address] PO Lester LORENZO, [address], [id number], [place], [place], [place] [id number] [place], [address]. tel:+ , [place]. tel: tel: [phone] Batista Encounter for Sep-0 [place] Referring In Womens Ultrasound 7-201 [place]. 700 Provider: Fred HERNANDEZ, screening of 7 Medical Teresa PO Box [email or web address] weeks Center Fast, 110 1522, gestation of Kj Leyva, 120, [address] PO MAURA, [place], [address], [id number], [place], [place], [id number] [place], [address]. tel:+316 , [place]. tel: tel: [phone] Bat[place] Encounter for Aug-1 [place] Referring In Womens suprvsn of normal 5-201 [place]. 700 Provider: Fred HERNANDEZ, , second 7 Medical Teresa [address] Box [email or web address] weeks Center Fast, 110 1522, gestation of Kj Leyva, 120, Street PO MAURA, Lester, [address], [id number], [place], [place], [id number] [place], [address]. tel: , [place]. tel: tel: [phone] Bat[place] Encounter for Giorgi-1 [place] Referring In Womens suprvsn of normal 3-201 [place]. 700 Provider: Fred HERNANDEZ, , first 7 Medical Teresa PO Box weeks Center Fast, 110 1522, gestation of Kj Leyva, 120, Street PO MAURA, [place], [address], [id number], [place], [place], [id number] [place], [address]. tel: , [place]. tel: tel:[phone] Chago Batista Encounter for Adriel-1 [place] Referring In Womens suprvsn of normal 5-201 [place]. 700 Provider: Fred HERNANDEZ, , first 7 Medical Teresa PO Box trimester9 weeks Center Fast, 110 1522, gestation of Kj Leyva, 120, [address] PO Lester LORENZO, [address], [id number], [place], [place], [id number] [place], [address]. tel: , [place]. tel: tel:[phone] [place] Giorgi-1 [place] Referring In Womens 0-201 [place]. 700 Provider: Health PA, 5 Medical Javed PO Box Center [place] R, 1522, , Kj 700 [place], 120, Medical [place], [facility] [id number], [place], [facility] 120, [id number] [place], tel: , [place]. [place], tel: [phone]. [id number] tel:[phone] [facility] Oct- [place] In Womens 0-201 Javed. 700 Health [place], 5 Medical PO Box Center 1522, , [facility] Lam[place], 120, [place], [place], [id number], [place], [place] [id number] tel: , [place]. tel: [phone] Chago Batista Mar-0 [place] In Womens 5-201 Javed. 700 Health [place], 2 Medical PO Box Center 1522, , Kj Aburto, 120, [place], [place], [id number], [place], [place] [id number] tel: , [place]. tel: [phone] Chago [place] Aug-2 Fanny In Womens 3-200 [place]is[place]. Health [place], 9 [facility] Box [place] [address], Center [place], , [facility], 120, [id number], [place], [place], tel: [phone] , [place]. tel: [phone] Family History Family Member Diagnosis Age At [...] party ID Authorization(s) BCBS Out Of State [id number] BCBS Out Of State [id number] BCBS Out Of State [id number] [employer] [id number] Social History Type Description Quantity Date Captured Alcohol Use Details No Caffeine Use Details Unknown Tobacco Use Status Unknown Smoking Status Never smoker Vital Signs Date / Height Weight BMI Pulse Blood Temperature Respiratory Body Head BMI Time: Rate Pressure Rate Surface Circumference percentile Area 45.5 -2017 6 10:29 kg/m AM eter (2) 190.50 45.9 -2017 lbs 3 10:32 kg/m AM eter (2) 190.50 45.9 142/92 -2017 lbs 3 mm[Hg] 10:54 kg/m AM eter (2) Chief Complaint And Reason For Visit Unknown Chief Complaint And Reason For Visit Reason For Referral Reason For Referral Unknown Plan Of Care Date Type Action Status Appointment Pallavi Swain BOOKED Future Order: Radiology Order Ultrasound OB Follow-up ([id number]) Ordered Future Order: Radiology Order Complete OB Ultrasound > 14 Ordered Weeks ([id number]) Date Type Problem Goal Intervention Status Start [...]
[2017-09-20 05:21] VITALS: RESP 16
[2017-09-20 05:22] VITALS: BMI 34.0
[2017-09-20] MEDS: LR 1,000 ML IV PRN ×2 (05:30→07:06)
[2017-09-20] MEDS ORDERED: NALOXONE 0.4 MG/ML INJECTION IVP PRN (08:06)
[2017-09-20] MEDS ORDERED: ROPIVACAINE 1% 10MG/ML INJ 200 MG, SUFentanil 50 MCG in NS 100 ML EPI PRN (08:06)
[2017-09-20] MEDS ORDERED: DiphenhydrAMINE 50 MG/ML INJECTION IVP PRN (08:06)
[2017-09-20] MEDS ORDERED: ONDANSETRON 4 MG/2 ML INJECTION IVP PRN (08:06)
--- NOTE | 2017-09-20 08:06 | Anesthesia Preoperative Report ---
Anesthesia Epidural/Spinal Rec - Date and Time Date: 09/20/17 Procedure: Labor Epidural Plan: Epidural - Vital Signs Vital Signs: Temperature 98.4 F 09/20/17 05:20 Pulse Rate 88 09/20/17 05:20 Respiratory Rate 16 09/20/17 05:20 Blood Pressure 147/90 H 09/20/17 05:20 Pulse Oximetry 99 09/20/17 05:20 NPO since: 00 /Para: P:3 Heart Rate: 128 - Medictaions & Allergies Inpatient Medications: Current Medications Acetaminophen (Tylenol) 500 - 1,000 mg PO Q4H PRN PRN Reason: Pain Al Hydroxide/Mg Hydroxide (Maalox Plus) 30 ml PO Q3H PRN PRN Reason: Indigestion Calcium Carbonate (Tums) 500 - 1,000 mg PO Q2H PRN PRN Reason: Indigestion Carboprost Tromethamine (Hemabate) 250 mcg IM O PRN PRN Reason: .Downtime Dextrose/Lactated Ringer's (Dextrose 5%-Lactated Ringers) 1,000 mls @ 125 mls/ hr IV .Q8H PRN PRN Reason: Labor Last Admin: 09/20/17 05:30 Dose: 125 mls/hr Lactated Ringer's (Lactated Ringers) 1,000 mls @ 999 mls/hr IV .Q1H1M PRN Last Admin: 09/20/17 07:06 Dose: 999 mls/hr Oxytocin (Pitocin Drip) 30 unit in 500 mls @ 2 mls/hr IV .Q24H PRN; Protocol PRN Reason: Induction/Augmentation Last Admin: 09/20/17 05:30 Dose: 2 mls/hr Lidocaine HCl (Xylocaine-Mpf 1% Vial) 0.2 mg ID O PRN PRN Reason: IV Start Methylergonovine Maleate (Methergine) 0.2 mg IM O PRN Misoprostol (Cytotec) 800 mcg MI ONCE PRN Allergies/Adverse Reactions: Allergies Allergy/AdvReac Type Severity Reaction Status Date / Time No Known Allergies Allergy Unknown Verified 03/20/10 13:37 - Home Medications Home Medications: Home Medications Medication Instructions Recorded Confirmed Type Vits W-Ca,Fe,Fa(<1MG) 1 tab PO #0 04/16/10 History ( Vitamins) - Medical History Cardiovascular: Reports: Heart Murmur (hx of as infant), High Cholesterol (hx of ) Gastrointestional: Reports: Morbid Obesity Other History: Reports: Now - Surgical History Reproductive Surgery/Treatment: DENIES: Section Anesthesia Reactions: None Hx Family Anesthesia Reaction: No History of Motion Sickness: No - Social History Smoking Status: Never smoker Second Hand Exposure: No Substance Use Type: does not use Alcohol Intake Frequency: does not drink Hx Chewing Tobacco Use: No - Pertinent Findings Lab Data: CBC and BMP 09/20/17 05:34 - Physical Exam Respiratory Exam: lungs clear, bilateral breath sounds equal Cardiovascular Exam: regular rate and rhythm - Airway Assessment Mallampati Score: I TMD: 3 Fingerbreadths Neck Extension: good Overall Assessment: no airway concerns - ASA ASA Score: 2 - Discussion Discussion: Discussed risks/options/alternatives of anesthesia and questions answered. Patient consents. Nursing pain assessment noted. Anesthesia Discussion: family member Attestation Statement: Prior to the delivery of any anesthetic medication, I examined the patient, developed the plan, obtained the patient's consent and discussed the risk and benefits of the procedure with the patient/guardian.
--- NOTE | 2017-09-20 12:08 | Labor and Delivery Note ---
DATE OF DELIVERY: 09/20/2017 DIAGNOSES 1. 32-year-old white female G4, P3 at 40.1 weeks gestational age. 2. Pitocin induction of labor for post dates. 3. Artificial rupture of membranes. 4. Epidural anesthesia. 5. Spontaneous vaginal delivery. 6. Male 8/9 Apgars, 3719 grams, (Gisele Morley) This is a long-time patient of mine who is known to have white coat syndrome and occasional elevated blood pressures. We made it to one day past her due date. She has been induced three previous times so induction was scheduled for today as well. Initially her cervix was closed by the nurse's check. Pitocin reached a maximum of 20 milliunits/minute and then artificial rupture of membranes occurred at 8:04 a.m. Clear fluid was noted. She then got an epidural block. She progressed slowly in labor and towards the end we turned the Pitocin down to 16 and then off when she had a strong urge to push. She pushed through one contraction and had a spontaneous vaginal delivery at 11:15 a.m. was bulb suctioned after delivery of the head and then again after delivery of the body. Cord was doubly clamped and cut. The infant's father cut the cord. The cord was allowed to drain for a minute and a half before clamping. Placenta delivered spontaneously and was intact. Perineum was intact except for a very small right periurethral that was small enough and hemostatic and did not need to be repaired. At time of dictation mother and infant are doing well. [facility]
[2017-09-20] MEDS ORDERED: DiphenhydrAMINE 25 MG CAPSULE PO PRN (12:52)
[2017-09-20] MEDS ORDERED: HYDROCORTISONE 2.5% CREAM 30gm RECTALLY PRN (12:52)
[2017-09-20] MEDS ORDERED: BENZOCAINE 20% SPRAY 0.5 ML MM ONE (12:52)
[2017-09-20] MEDS: IBUPROFEN 800 MG TABLET PO PRN ×2 (13:38→21:19)
[2017-09-20] MEDS: OXYTOCIN DRIP 30 UNIT/500 ML ML IV SCH ×2 (14:01→22:22)
[2017-09-20 14:38] VITALS: O2SAT 98
[2017-09-20] MEDS: HYDROCODONE/APAP 5mg/325mg TABLET PO PRN ×3 (17:34→23:03)
--- NOTE | 2017-09-20 18:51 | Anesthesia Postoperative Note ---
- Date and Time Date: 09/20/17 Time: 18:45 - Status Patient Participated in Evaluation: Patient Participated in Person Vital Signs: Temperature 98.5 F 09/20/17 15:38 Pulse Rate 87 09/20/17 15:38 Respiratory Rate 16 09/20/17 15:38 Blood Pressure 136/66 09/20/17 15:38 Pulse Oximetry 98 09/20/17 14:30 Respiratory Function: Airway Patent, Regular Respirations Cardiovascular Function: Regular Pulse Mental Status: Alert and Oriented Pain Intensity: 0 Hydration: Taking PO Fluids Complications During Recover: None Apparent Post Anesthesia Care Notes: ambulated without problems - Follow-Up Instructions Instructions: Per Surgeon
[2017-09-21] MEDS: OXYTOCIN DRIP 30 UNIT/500 ML ML IV SCH (02:27)
[2017-09-21] MEDS: IBUPROFEN 800 MG TABLET PO PRN (05:59)
[2017-09-21 06:01] VITALS: BP 120/57; PULSE 86; TEMP 98.1
[2017-09-21] MEDS ORDERED: DOCUSATE CALCIUM 240 MG CAPSULE PO SCH (09:00)
[2017-09-21] MEDS: HYDROCODONE/APAP 5mg/325mg TABLET PO PRN (12:39)
--- NOTE | 2017-09-21 12:40 | Progress Note ---
OB PP Progress Note Free Text - Date Date: 09/21/17 - Progress Note Progress Note: vss af c/o tailbone pain-discussed dc instructions reviewed q&a-krb
== END 2017-09-21 14:30 | disposition home or self-care (01) | DRG 775 ==
LOC: MC 09-20 05:03
PROVIDERS: ADMIT Obstetrics & Gynecology; ATTEND Obstetrics & Gynecology